=== PATIENT | female | born 1990 | race Caucasian/White ===

== ENCOUNTER 2016-05-10 04:17 | Emergency (ER) | payer OTHER ==
--- NOTE | ~2016-05-10 | CT55 ---
[facility] A Service of [facility] RADIOLOGY TEXT RESULTS PATIENT: RANDY MATA LOCATION: [facility] : [birth year] UNIT #: [id number] AGE: [address]: Jose Raul Rock DO SEX: F ORDER DR: [id number] [facility] [address] [place], [place] [address] [id number] E MR#: [id number] Acc #: [id number] NAME: RANDY MATA. : 1990 SEX: F STUDY DATE/TIME: 05/10/2016 6:28 UNIT: [facility] ROOM: STUDY DESCRIPTION: CT Chest W Con Attending Physician: Jose Raul Rock D.O. Ordering Physician: Candido Baez M.D. Primary Care Physician: Primary Care Physician No MEDICAL IMAGING REPORT This report is preliminary unless electronic signature is present EXAM CT chest with contrast HISTORY Osteomyelitis. Right shoulder pain 03/2016, chest pressure 2 weeks, short of air and cough. Drug abuse. TECHNIQUE This CT exam was performed with one or more of the following radiation dose reduction techniques: automatic exposure control, adjustment of mA and/or kV according to patient size, and iterative reconstruction. COMMENT CT of the chest performed axial plane during the intravenous administration of Isovue-370, 100 mL. This is followed by standard coronal and sagittal reconstructed images and it is not performed as a PE protocol chest CT. The comparison study is from 04/05/2016. In the interval since prior study the air bubbles previously noted in the right anterior chest wall near midline just anterior to the right-sided sternoclavicular joint and at the medial aspect of the pectoralis musculature has resolved. There is however still some vague fullness of soft tissue in this location and some subtle low-attenuation at the site of the prior air bubbles. Presumably this reflects interval treatment of an abscess but please correlate with the patient's actual clinical course. The underlying right-sided sternoclavicular joint again has an abnormal appearance. It is consistent with the patient's provided history of septic arthritis and osteomyelitis. The appearance of the joint itself is probably not significantly changed. I suspect there is some inflammatory tissue around the joint relatively circumferentially including deep to the joint but there is no obvious extension of fluid into the anterior mediastinum. The patient does have residual thymus. No significant mediastinal lymphadenopathy is seen. No axillary lymphadenopathy. No STS. [facility] A Service of [facility] RADIOLOGY TEXT RESULTS PATIENT: RANDY MATA LOCATION: [facility] : [birth year] UNIT #: [id number] AGE: [address]: Jose Raul Rock DO SEX: F ORDER DR: pericardial or pleural effusion. No pneumothorax. The lungs are clear. IMPRESSION 1. In the interval since the CT of 04/05/2016 the air bubbles seen in the right anterior chest wall just anterior to the right sided sternoclavicular joint have resolved. This is most consistent with interval treatment of an abscess given the history provided. There is only a small amount of edematous appearing tissue remaining in this location. Please correlate with findings on physical exam as well. Again the sternoclavicular joint on the right side is abnormal consistent with known diagnosis of osteomyelitis and septic arthritis. The appearance is however unchanged when comparison is made to 04/05/2016, also consistent with interval treatment. Please correlate with the treatment course. 2. Otherwise unremarkable CT of the chest with contrast. Please be aware this is not performed as a pulmonary embolism study. 3. Not mentioned above, there is a nodule in the right lobe of the thyroid which should be further evaluated with a follow up ultrasound. it is about a cm in diameter. STAT * RESULT Dictated by... Marilee Guallpa M.D. THIS IS AN ELECTRONICALLY VERIFIED REPORT Marilee Guallpa M.D. at 05/10/2016 4:09 PM Tj TD: 05/10/2016 13:45 JOB #: [id number] MEDICAL IMAGING REPORT COPY
--- NOTE | ~2016-05-10 | CR230 ---
[facility] A Service of [facility] RADIOLOGY TEXT RESULTS PATIENT: RANDY MATA LOCATION: [facility] : 90 UNIT #: [id number] AGE: [address]: Jose Raul Rock DO SEX: F ORDER DR: [id number] [facility] [address] [place], [place] [address] [id number] E MR#: [id number] Acc #: [id number] NAME: RANDY MATA. : 1990 SEX: F STUDY DATE/TIME: 05/10/2016 05:05 UNIT: [facility] ROOM: STUDY DESCRIPTION: CR Shoulder Min 2 View Rt Attending Physician: Jose Raul Rock D.O. Ordering Physician: Candido Baez M.D. Primary Care Physician: Primary Care Physician No MEDICAL IMAGING REPORT This report is preliminary unless electronic signature is present EXAM Right shoulder, 05/10 at 05:05 hours INDICATION Shoulder pain for 1-2 days. FINDINGS 3 views of the right shoulder are compared with 01/12/2016. There is no fracture or dislocation. There is no AC joint separation. IMPRESSION Normal right shoulder. No change from prior. Dictated by... Ayaan Claire Jr., M.D. THIS IS AN ELECTRONICALLY VERIFIED REPORT Ayaan Claire Jr., M.D. at 05/10/2016 9:34 PM HALINA/shabbir TD: 05/10/2016 17:30 JOB #: [id number] MEDICAL IMAGING REPORT COPY
--- NOTE | ~2016-05-10 | CR72 ---
[facility] A Service of [facility] & [facility] RADIOLOGY TEXT RESULTS PATIENT: RANDY MATA LOCATION: [facility] : [birth year] UNIT #: [id number] AGE: [address]: Jose Raul Rock DO SEX: F ORDER DR: [id number] [facility] [address] [place], [place] [address] [id number] E MR#: [id number] Acc #: [id number] NAME: RANDY MATA. : 1990 SEX: F STUDY DATE/TIME: 05/10/2016 05:04 UNIT: [facility] ROOM: STUDY DESCRIPTION: CR Chest Single View Portable Attending Physician: Jose Raul Rock D.O. Ordering Physician: Candido Baez M.D. Primary Care Physician: Primary Care Physician No MEDICAL IMAGING REPORT This report is preliminary unless electronic signature is present EXAM Portable chest, 05/10 at 0504 hours INDICATIONS Right side chest pain for the last 1-2 days. COMPARISON 04/06/2016 FINDINGS A single AP portable view of the chest shows both lungs to be clear. The heart is normal in size. The mediastinal contour is normal. No significant bone abnormalities are seen. IMPRESSION Normal portable chest. Dictated by... Ayaan Claire Jr., M.D. THIS IS AN ELECTRONICALLY VERIFIED REPORT Ayaan Claire Jr., M.D. at 05/10/2016 9:34 PM HALINA/rian TD: 05/10/2016 17:35 JOB #: [id number] MEDICAL IMAGING REPORT COPY
--- NOTE | ~2016-05-10 | EKG ---
PATIENT: RANDY MATA UNIT #: [id number] Ventricular Rate: 106 BPM Atrial Rate: 106 BPM P-R Interval: 140 ms QRS Duration: 78 ms Q-T Interval: 308 ms QTC Calculation(Bezet): 409 ms P Armstrong: 70 degrees Calculated R Armstrong: 82 degrees Calculated T Armstrong: 50 degrees Diagnosis Line: Sinus tachycardia Diagnosis Line: Otherwise normal ECG Diagnosis Line: When compared with ECG of 12-JAN-2016 03:42, Diagnosis Line: No significant change was found Diagnosis Line: Confirmed by WILNER THOMPSON MD ([id number]) on Diagnosis Line: 05/12/2016 4:02:04 PM INTERPRETING MD: DONNA DARDEN
[~2016-05-10 04:17] MED LIST: ALBUTEROL17 GM; ANTIDEPRESSANT; ARIXTRA; ASPIRIN81 M1 PO; BACTRIM 400-801 TA1 PO; BACTRIM DS TABL1 TA1 PO; BACTROBAN22 GM TP; CELEXA PO; CLEOCIN PO; COLACE PO; DESYREL50 MG PO; DOXYCYCLINE HY100 M1 PO; FAMVIR500 M1 PO; FLEXERIL10 M1 PO; FOLIC ACID; IBUPROFEN800 MG PO; K-DUR20 ME1 DOB; KEPPRA500 M2; LEVETIRACETAM250 MG PO; LIDODERM30 EA; LORTAB 10/500 T1 TAB PO; LORTAB 5/500 TA1 TA1 PO; MACRODANTIN PO; MIRALAX17 GM PO; MOTRIN600 MG PO; NEURONTIN600 MG PO; NO MEDICATIONS; PERCOCET5/325 PO; PRENAPLUS TABL1 EACH PO; PRENATAL VITAMI1 TA4 PO; ROBAXIN500 MG PO; SEROQUEL PO; STRATTERA PO; TAMIFLU75 M1 PO; TOPAMAX PO; TOPAMAX50 MG; TOPAMAX50 MG DOB; TOPAMAX50 MG PO; VISTARIL50 MG PO; VOLTAREN50 MG PO; VOLTAREN75 MG PO
[2016-05-10 04:43] LABS: POC - CKMB 2.2 ng/mL (0.0-7.9); POC - TROPONIN <0.05 ng/mL (<=0.05)
[2016-05-10 04:49] LABS: BASOPHIL# 0.1 X10e3 (0-0.3); BASOPHIL% 0.6 % (0-2.5); DIFF IND YES; EOSINOPHIL% 0.2 % (0.0-7.0); HEMATOCRIT 38.5 % (35.0-45.0); HEMOGLOBIN 12.6 gm/dL (12.0-16.0); LYMPHOCYTE% 11.8 % (17.0-45.0); MEAN CELL VOLUME 80.1 FL (83-96); MEAN CORPUSCULAR HEMOGLOBIN 26.3 PG (28-34); MEAN CORPUSCULAR HGB CONC 32.8 g/dL (30-36); MONOCYTE# 0.6 X10e3 (0-1.0); MONOCYTE% 3.4 % (3.0-12.0); NEUTROPHIL# 14.5 X10e3 (1.5-7.1); PLATELET COUNT 246 X10e3 (140-420); RED CELL DISTRIBUTION WIDTH 14.7 % (11.0-15.5); WHITE BLOOD COUNT 17.2 X10e3 (4.0-10.5)
[2016-05-10 04:52] LABS: URINE SOURCE CLEAN CATCH
[2016-05-10 04:57] LABS: URINE APPEARANCE CLEAR; URINE BILIRUBIN NEG (NEG); URINE BLOOD NEG (NEG); URINE COLOR YELLOW; URINE GLUCOSE NEG (NEG); URINE KETONE NEG (NEG); URINE LEUKOCYTE ESTERASE NEG (NEG); URINE NITRATE NEG (NEG); URINE PROTEIN NEG (NEG); URINE SPECIFIC GRAVITY 1.019 (1.003-1.035); URINE UROBILINOGEN 0.2 MG/DL (NEG)
[2016-05-10 05:06] LABS: CULTURE INDICATED? NO
[2016-05-10 05:08] LABS: PLATELET ESTIMATE NORMAL (NORMAL)
[2016-05-10 05:35] LABS: ALBUMIN SERUM 3.7 g/dL (3.5-5.0); ALKALINE PHOSPHATASE 69 U/L (32-92); ALT (SGPT) 109 U/L (10-40); AST (SGOT) 75 U/L (10-42); BILIRUBIN, DIRECT 0.1 mg/dL (0.0-0.2); BILIRUBIN,INDIRECT 0.7 mg/dL (0.0-0.9); BILIRUBIN,TOTAL 0.8 mg/dL (0.2-2.0); BLOOD UREA NITROGEN 14 mg/dL (9-23); BUN/CREATININE RATIO 23.33; CALCIUM SERUM 9.4 mg/dL (8.4-10.2); CARBON DIOXIDE 26 mmol/L (22-31); CHLORIDE 96 mmol/L (100-111); CREATININE SERUM 0.6 mg/dL (0.6-1.4); GLOM FILT RATE Estimated ABOVE60 mL/min (>60); GLUCOSE FASTING 104 mg/dL (70-110); POTASSIUM 3.7 mmol/L (3.5-5.1); SODIUM 129 mmol/L (135-145)
[2016-05-10 05:47] LABS: AMPHETAMINE POS (NEG); BARBITURATES NEG (NEG); BENZODIAZEPINES NEG (NEG); COCAINE NEG (NEG); MARIJUANA NEG (NEG); OPIATES POS (NEG); TRICYCLIC ANTIDEPRESSANTS NEG (NEG); U METHADONE NEG (NEG)
[2016-05-10 06:38] LABS: POC - CKMB 1.2 ng/mL (0.0-7.9); POC - TROPONIN <0.05 ng/mL (<=0.05)
== END 2016-05-10 12:00 | disposition left against medical advice (07) ==
LOC: CED 04:17
PROVIDERS: Emergency Medicine
DX: M25.511 Pain in right shoulder (principal); E87.1 Hypo-osmolality and hyponatremia; F11.10 Opioid abuse, uncomplicated; F15.10 Other stimulant abuse, uncomplicated; J45.909 Unspecified asthma, uncomplicated; F17.200 Nicotine dependence, unspecified, uncomplicated; F31.9 Bipolar disorder, unspecified; Z91.040 Latex allergy status
CPT/HCPCS: 36415; 71010; 71260; 73030; 80048; 80076; 80307; 81003; 82553; 83605; 84484; 84703; 85025; 85379; 85652; 86140; 87040; 93005; 96361; 96374; 99284; J1885; Q9967